=== PATIENT | male | born 1950 | race Caucasian/White ===

== ENCOUNTER 2018-03-17 10:04 | Emergency (ER) | payer MEDICARE, OTHER ==
[~2018-03-17] VITALS: Ht 182.9 cm; Wt 86.2 kg
[~2018-03-17 10:04] MED LIST: LOSA25TA3 PO
[2018-03-17] MEDS ORDERED: MORPHINE SULFATE 4 MG/1 ML DISP.SYRIN ONE ×2 (10:28→14:13)
[2018-03-17] MEDS ORDERED: ONDANSETRON 4 MG/2 ML VIAL ONE ×2 (10:28→14:13)
[2018-03-17] MEDS ORDERED: MORPHINE SULFATE 2 MG/1 ML DISP.SYRIN IV ONE (10:30)
[2018-03-17] MEDS ORDERED: ONDANSETRON 4 MG/2 ML VIAL IV ONE (10:30)
[2018-03-17] MEDS ORDERED: IV NORMAL SALINE 1000 ML BAG IV ONE (10:30)
--- NOTE | 2018-03-17 10:40 | NUR ---
labs drawn-sent, iv placed, meds administeresd, pt to ct scan.
[2018-03-17 10:41] LABS: BASOPHILS # (AUTO) 0.1 K/uL (0.0-8.0); BASOPHILS % (AUTO) 0.7 % (0.0-2.0); EOSINOPHILS % (AUTO) 0.1 % (0.0-7.0); HEMATOCRIT 45.1 % (36.7-47.1); HEMOGLOBIN 15.5 g/dL (12.5-16.3); LYMPHOCYTES # (AUTO) 0.7 K/uL (20.0-40.0); LYMPHOCYTES % (AUTO) 7.2 % (20.5-51.5); MEAN CORPUSCULAR HEMOGLOBIN 32.5 uug (23.8-33.4); MEAN CORPUSCULAR HGB CONC 34 g/dL (32.5-36.3); MEAN CORPUSCULAR VOLUME 94.8 fL (73.0-96.2); MONOCYTES # (AUTO) 0.5 K/uL (2.0-10.0); MONOCYTES % (AUTO) 5.4 % (0.0-11.0); NEUTROPHILS # (AUTO) 8.8 K/uL (1.8-8.9); NEUTROPHILS % (AUTO) 86.6 % (38.5-71.5); PLATELET COUNT (AUTO) 174 K/uL (152-348); RED BLOOD CELL COUNT(AUTO) 4.76 MIL/uL (4.06-5.63); WHITE BLOOD COUNT (AUTO) 10.1 K/uL (3.6-10.2)
[2018-03-17 10:46] LABS: CREATININE 1.2 mg/dL (0.6-1.3); POTASSIUM 4.1 mmol/L (3.5-5.1)
[2018-03-17 10:52] LABS: BILIRUBIN,DIRECT 0.2 mg/dL (0.0-0.2); BILIRUBIN,TOTAL 0.7 mg/dL (0.2-1.0); TOTAL PROTEIN, SERUM 7.1 g/dL (6.4-8.2)
[2018-03-17 11:20] LABS: *BILIRUBIN,URIN NEGATIVE (NEGATIVE); *BLOOD, URINE Trace-intact (NEGATIVE); *COLOR,URINE YELLOW (YELLOW); *KETONES,URINE NEGATIVE (NEGATIVE); *PROTEIN,URINE TRACE (NEGATIVE); *UROBILINOGEN,URINE 0.2 E.U./dl (NORMAL); LEUKOCYTE ESTERASE ,URINE 1+ (NEGATIVE); NITRITE, URINE NEGATIVE (NEGATIVE); UGLUCOSE NEGATIVE (NEGATIVE)
[2018-03-17 11:25] LABS: *CLARITY,URINE HAZY (CLEAR)
[2018-03-17 11:30] LABS: BACTERIA,URINE NONE SEEN /HPF (NONE SEEN); MUCUS,URINE FEW /LPF (0-FEW); RBC,URINE 0-3 /HPF (0-3); SQUAMOUS EPITHELIAL CELL,UR FEW /HPF (NONE SEEN)
[2018-03-17] MEDS ORDERED: IV NORMAL SALINE 100 ML ONE (12:15)
[2018-03-17] MEDS ORDERED: IOHEXOL 300MG/ML 100 ML INFUS..BTL ONE (12:15)
[2018-03-17] MEDS ORDERED: SWABABLE VALVE TRANSFER SET EA MC ONE (12:15)
[2018-03-17] MEDS ORDERED: DIATR MEGLU/DIATRIZOATE SODIUM 120 ML BOTTLE ONE (12:16)
[2018-03-17] MEDS ORDERED: MORPHINE SULFATE 4 MG/1 ML DISP.SYRIN IV ONE (14:15)
[2018-03-17] MEDS ORDERED: ONDANSETRON IV *ER 4 MG/2 ML VIAL IV ONE (14:15)
--- NOTE | 2018-03-17 15:22 | NUR ---
MSE COMPLETED, PT HAD IV D/C'D INTACT, ACI/CD COPY OF CT'S/COPIES OF ALL TESTS/ ACI/RX X1 GIVEN. OPT AMBULATED W/O DIFF/TOOK ALL BELONGINGS. FAMILY PRESENT AND TO DRIVE.
[2018-03-17 15:25] VITALS: BP 140/88
[2018-03-18] MEDS ORDERED: ZOLP5TAB8 PO (23:36)
[2018-03-18] MEDS ORDERED: ACET325T53 PO (23:36)
[2018-03-18] MEDS ORDERED: METO5VIA3 IV (23:36)
[2018-03-18] MEDS ORDERED: CLON0.1T14 PO (23:36)
[2018-03-18] MEDS ORDERED: THIA100T13 PO (23:36)
[2018-03-18] MEDS ORDERED: HYDR-3326 PO (23:36)
[2018-03-18] MEDS ORDERED: METO25TA6 PO (23:36)
[2018-03-18] MEDS ORDERED: MAGN400O6 PO (23:36)
[2018-03-18] MEDS ORDERED: PANT40TA2 PO (23:36)
[2018-03-18] MEDS ORDERED: FOLI1TAB16 PO (23:36)
[2018-03-18] MEDS ORDERED: MULT-24 PO (23:36)
== END 2018-03-17 15:26 | disposition home or self-care (01) ==
LOC: ER 10:06
DX: C26.0 Malignant neoplasm of intestinal tract, part unspecified (principal); I10 Essential (primary) hypertension; Z88.0 Allergy status to penicillin; Z88.6 Allergy status to analgesic agent; Z79.899 Other long term (current) drug therapy
CPT/HCPCS: 36415; 74176; 74177; 80048; 80076; 81001; 83690; 85025; 87086; 96361; 96374; 96375; 96376; 99285; A4663; J2270 ×2; J2405 ×2; J3490; J7030; Q9963; Q9967

== ENCOUNTER 2018-03-18 02:04 | Inpatient (IN) | payer MEDICARE, OTHER ==
[~2018-03-18] VITALS: Ht 182.9 cm; Wt 86.6 kg
[2018-03-18] MEDS ORDERED: ONDANSETRON 4 MG/2 ML VIAL IV ONE (02:30)
[2018-03-18] MEDS ORDERED: HYDROMORPHONE 1 MG/1 ML DISP.SYRIN IV ONE (02:30)
[2018-03-18] MEDS ORDERED: IV NORMAL SALINE 1000 ML BAG IV ONE (02:30)
[2018-03-18] MEDS ORDERED: ONDANSETRON 4 MG/2 ML VIAL ONE (02:40)
[2018-03-18] MEDS ORDERED: FENTANYL CITRATE 100 MCG/2 ML AMPUL IV ONE ×2 (02:45→04:30)
[2018-03-18 03:32] LABS: BASOPHILS % (AUTO) 0.2 % (0.0-2.0); EOSINOPHILS % (AUTO) 0.5 % (0.0-7.0); HEMATOCRIT 44.2 % (36.7-47.1); HEMOGLOBIN 15.1 g/dL (12.5-16.3); LYMPHOCYTES % (AUTO) 13.7 % (20.5-51.5); MEAN CORPUSCULAR HEMOGLOBIN 32.4 uug (23.8-33.4); MEAN CORPUSCULAR HGB CONC 34 g/dL (32.5-36.3); MEAN CORPUSCULAR VOLUME 95.2 fL (73.0-96.2); MONOCYTES # (AUTO) 0.4 K/uL (2.0-10.0); MONOCYTES % (AUTO) 5.8 % (0.0-11.0); NEUTROPHILS # (AUTO) 5.5 K/uL (1.8-8.9); NEUTROPHILS % (AUTO) 79.8 % (38.5-71.5); PLATELET COUNT (AUTO) 168 K/uL (152-348); RED BLOOD CELL COUNT(AUTO) 4.64 MIL/uL (4.06-5.63)
[2018-03-18 03:46] LABS: CREATININE 1.4 mg/dL (0.6-1.3); POTASSIUM 3.7 mmol/L (3.5-5.1)
[2018-03-18 03:52] LABS: *BILIRUBIN,URIN NEGATIVE (NEGATIVE); *BLOOD, URINE Trace-lysed (NEGATIVE); *CLARITY,URINE CLEAR (CLEAR); *COLOR,URINE YELLOW (YELLOW); *KETONES,URINE 2+ (NEGATIVE); *PROTEIN,URINE TRACE (NEGATIVE); *UROBILINOGEN,URINE 0.2 E.U./dl (NORMAL); LEUKOCYTE ESTERASE ,URINE NEGATIVE (NEGATIVE); NITRITE, URINE NEGATIVE (NEGATIVE); PH,URINE 5.5 (5.0-8.0); UGLUCOSE NEGATIVE (NEGATIVE)
[2018-03-18 03:54] LABS: BACTERIA,URINE NONE SEEN /HPF (NONE SEEN); RBC,URINE 0-3 /HPF (0-3); SQUAMOUS EPITHELIAL CELL,UR FEW /HPF (NONE SEEN); WBC,URINE 0-3 /HPF (0-3)
[2018-03-18 04:12] LABS: BILIRUBIN,TOTAL 1.2 mg/dL (0.2-1.0); TOTAL PROTEIN, SERUM 7.1 g/dL (6.4-8.2)
[2018-03-18 04:53] LABS: BILIRUBIN,DIRECT 0.2 mg/dL (0.0-0.2)
[2018-03-18] MEDS ORDERED: MAGNESIUM HYDROXIDE 30 ML LIQUID UDC PO PRN (06:00)
[2018-03-18] MEDS ORDERED: ZOLPIDEM 5 MG TABLET PO PRN (06:00)
[2018-03-18] MEDS ORDERED: MORPHINE SULFATE 2 MG/1 ML DISP.SYRIN IV PRN ×2 (06:00→18:00)
[2018-03-18] MEDS ORDERED: Z GUARD REMEDY PASTE 57 GM TUBE TOP PRN (06:00)
[2018-03-18] MEDS ORDERED: ONDANSETRON 4 MG/2 ML VIAL IV PRN (06:00)
[2018-03-18] MEDS ORDERED: HYDROCODONE/APAP 5-325MG TABLET PO PRN (06:00)
[2018-03-18] MEDS: IV D5 1/2 NS 1000 ML 1,000 ML IV PRN ×2 (06:09→21:00)
[2018-03-18 06:22] VITALS: BP 156/103
[2018-03-18 11:28] LABS: CREATININE 1.3 mg/dL (0.6-1.3); POTASSIUM 3.8 mmol/L (3.5-5.1)
[2018-03-18 12:15] VITALS: BP 143/95
[2018-03-18] MEDS ORDERED: SIMETHICONE 40 MG/0.6 ML 30 ML BOTTLE PO PRN (13:15)
[2018-03-18] MEDS: METOPROLOL TARTRATE 25 MG TABLET PO SCH ×2 (13:23→20:59)
[2018-03-18] MEDS: ACETAMINOPHEN 325 MG TABLET PO PRN ×2 (13:23→20:59)
[2018-03-18] MEDS ORDERED: PANTOPRAZOLE SODIUM 40 MG TABLET.DR PO SCH (14:15)
[2018-03-18] MEDS ORDERED: CLONIDINE HCL 0.1 MG TABLET PO PRN (14:15)
[2018-03-18 16:18] VITALS: BP 122/80
[2018-03-18] MEDS ORDERED: METOCLOPRAMIDE HCL 10 MG/2 ML VIAL IV PRN (18:45)
[2018-03-18 20:00] VITALS: BP 115/69
[2018-03-18] MEDS ORDERED: GOLYTELY 4000 ML BOTTLE PO ONE (20:15)
[2018-03-18 20:59] VITALS: BP 133/86
[2018-03-18] MEDS ORDERED: MAGN400O6 PO (23:36)
[2018-03-18] MEDS ORDERED: MULT-24 PO (23:36)
[2018-03-18] MEDS ORDERED: METO5VIA3 IV (23:36)
[2018-03-18] MEDS ORDERED: HYDR-3326 PO (23:36)
[2018-03-18] MEDS ORDERED: FOLI1TAB16 PO (23:36)
[2018-03-18] MEDS ORDERED: METO25TA6 PO (23:36)
[2018-03-18] MEDS ORDERED: PANT40TA2 PO (23:36)
[2018-03-18] MEDS ORDERED: ACET325T53 PO (23:36)
[2018-03-18] MEDS ORDERED: ZOLP5TAB8 PO (23:36)
[2018-03-18] MEDS ORDERED: CLON0.1T14 PO (23:36)
[2018-03-18] MEDS ORDERED: THIA100T13 PO (23:36)
[2018-03-19] MEDS ORDERED: MULTIVITAMINS,THERAPEUTIC TABLET PO SCH (09:00)
[2018-03-19] MEDS ORDERED: FOLIC ACID 1 MG TABLET PO SCH (09:00)
[2018-03-19] MEDS ORDERED: THIAMINE HCL 100 MG TABLET PO SCH (09:00)
== END 2018-03-19 00:39 | disposition short-term general hospital (02) | DRG 374 ==
LOC: ER 02:08 → MED 05:20
PROVIDERS: ADMIT Internal Medicine; ATTEND Internal Medicine
DX: D37.2 Neoplasm of uncertain behavior of small intestine (principal); N17.0 Acute kidney failure with tubular necrosis; E87.1 Hypo-osmolality and hyponatremia; J98.11 Atelectasis; R18.8 Other ascites; R17 Unspecified jaundice; K56.7 Ileus, unspecified; K57.30 Diverticulosis of large intestine without perforation or abscess without bleeding; Z80.6 Family history of leukemia; Z82.49 Family history of ischemic heart disease and other diseases of the circulatory system; F17.210 Nicotine dependence, cigarettes, uncomplicated; E86.0 Dehydration; N28.1 Cyst of kidney, acquired; N40.0 Benign prostatic hyperplasia without lower urinary tract symptoms; J43.2 Centrilobular emphysema; E83.51 Hypocalcemia; I11.9 Hypertensive heart disease without heart failure; Z88.6 Allergy status to analgesic agent; Z88.0 Allergy status to penicillin; F10.20 Alcohol dependence, uncomplicated; E78.5 Hyperlipidemia, unspecified; I45.10 Unspecified right bundle-branch block; E11.65 Type 2 diabetes mellitus with hyperglycemia; E87.8 Other disorders of electrolyte and fluid balance, not elsewhere classified; Y90.9 Presence of alcohol in blood, level not specified
CPT/HCPCS: 36415; 70030-TC; 71045; 71250; 74021; 82378; 83605; 83690; 84153; 85025; 87040; 93005; A4663; J2270; J2405; J2765; J3010; J3490; J7030